=== PATIENT | female | born 2000 | race African-American/Black ===

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

== ENCOUNTER 2020-01-08 21:39 | Emergency (ER) | payer MEDICAID | END 2020-01-08 22:53 | disposition left against medical advice (07) | LOC: ER 21:39 | DX: N39.0 Urinary tract infection, site not specified (principal); Z53.21 Procedure and treatment not carried out due to patient leaving prior to being seen by health care provider ==